=== PATIENT | male | born 1955 | race African-American/Black ===

== ENCOUNTER 2022-09-01 16:52 | Inpatient (IN) | payer MEDICARE ==
[2022-09-01 19:37] VITALS: BMI 23.3
[2022-09-01] MEDS ORDERED: Acetaminophen 325 MG TAB PO PRN (20:01)
[2022-09-01] MEDS ORDERED: Ondansetron ODT 4 MG TAB PO PRN (20:01)
[2022-09-01] MEDS ORDERED: Ondansetron PF 4 MG/2 ML Vial IVP PRN (20:01)
[2022-09-01] MEDS ORDERED: Bisacodyl 5 MG TAB PO PRN (20:01)
[2022-09-01] MEDS ORDERED: Senokot S 8.6-50 MG TAB PO PRN (20:01)
[2022-09-01] MEDS: Atorvastatin Calcium 40 MG TAB PO SCH (21:18)
[2022-09-01] MEDS: Famotidine 20 MG TAB PO SCH (21:18)
[2022-09-01] MEDS ORDERED: hydrALAZINE 20 MG/ML VIAL SLOW IVP PRN (22:19)
[2022-09-02 00:02] LABS: Bacteria/HPF 2+ HPF (None Seen); Bilirubin Negative (Negative); Blood, Urine 1+ (Negative); CAUTI Indications for Culture Dysuria,urgency,freq; Clarity Clear (Clear); Glucose, Urine (Dipstick) Normal (Negative); Ketone, Urine Negative (Negative); Leukocyte 25 Leu/uL (Negative); Nitrite Negative (Negative); Protein, Urine (Dipstick) Negative (Neg-Trace); Specific Gravity, Urine 1.027 (1.002-1.036); Squamous Epithelial 0-3 HPF (0-3); Urobilinogen Normal mg/dL (Less than 2); pH, Urine 6.5 (5.0-9.0)
[2022-09-02 00:06] LABS: Urine Culture Reflex No No
[2022-09-02] MEDS: cefTRIAXone\\ROCEPHIN 1 GM in Sodium Chloride 0.9% 100 ML IVPB SCH (02:54)
[2022-09-02 05:05] LABS: #Eosinphils 0.4 thou/uL (0.0-0.7); #Monocytes 0.4 thou/uL (0.11-0.59); %Basophils 0.7 % (0.0-1.0); %Eosinophils 6.8 % (0.0-10.0); %Lymphocytes 50.9 % (21.0-51.0); %Monocytes 6.8 % (0.0-10.0); %Neutrophils 34.6 % (42.0-75.0); Hemoglobin 13.1 g/dL (14.0-18.0); Mean Corpuscular HGB CONC 31.6 g/dL (32.0-36.0); Mean Corpuscular Hemoglobin 28.7 pg (27.0-31.0); Mean Corpuscular Volume 90.8 fl (78.0-98.0); Mean Platelet Volume 9.3 fL (7.4-10.4); Platelet Count 151 10x3/uL (130-400); RBC Distribution Width 13.6 % (11.5-14.5); Red Blood Cell (RBC) Count 4.56 mill/uL (4.70-6.10); White Blood Cell (WBC) Count 5.9 10x3/uL (4.8-10.8)
[2022-09-02 05:27] LABS: Anion Gap 12 mmol/L (10-20); BUN (Urea Nitrogen) 17 mg/dL (8.4-25.7); Calc. Creatinine Clearance 69 mL/min (70-130); Calcium 9.3 mg/dL (7.8-10.44); Carbon Dioxide 27 mmol/L (23-31); Cardiac Risk 4.2 (Less than 4.5); Chloride 106 mmol/L (98-107); Cholesterol 226 mg/dl (< 200 Desired); Estimated GFR 76; Glucose 92 mg/dL (80-115); HDL Cholesterol 54 mg/dL (>60 Neg Risk); LDL Cholesterol, Calculated 162 mg/dL; Sodium 141 mmol/L (136-145); Triglycerides 49 mg/dL (Less than 150)
[2022-09-02 05:31] LABS: Hemoglobin A1c 5.6 % (4.0-6.0)
[2022-09-02] MEDS: Aspirin 81 mg Enteric Coated Tablet PO SCH (08:19)
[2022-09-02] MEDS: Tamsulosin HCl 0.4 MG CAP PO SCH (08:19)
[2022-09-02] MEDS: Famotidine 20 MG TAB PO SCH ×2 (08:20→21:18)
[2022-09-02] MEDS: Atorvastatin Calcium 40 MG TAB PO SCH (21:18)
[2022-09-03] MEDS: cefTRIAXone\\ROCEPHIN 1 GM in Sodium Chloride 0.9% 100 ML IVPB SCH (02:07)
[2022-09-03] MEDS: Tamsulosin HCl 0.4 MG CAP PO SCH (08:47)
[2022-09-03] MEDS: Aspirin 81 mg Enteric Coated Tablet PO SCH (08:47)
[2022-09-03] MEDS: Famotidine 20 MG TAB PO SCH (08:47)
[2022-09-03] MEDS ORDERED: Lisinopril 10 MG TAB PO SCH (09:00)
[2022-09-03 13:06] VITALS: BP 164/96; TEMP 98.1
== END 2022-09-03 13:47 | disposition home or self-care (01) | DRG 65 ==
LOC: 2SE 16:52 → OBSVTOIN 09-02 14:00
PROVIDERS: ADMIT Family Medicine; ATTEND Internal Medicine
PROC: 4A10X4Z Monitoring of Central Nervous Electrical Activity, External Approach (ICD-10-PCS; principal; 2022-09-02)
PROC: 0T2BX0Z Change Drainage Device in Bladder, External Approach (ICD-10-PCS; 2022-09-02)
DX: I63.9 Cerebral infarction, unspecified (principal); I16.1 Hypertensive emergency; N39.0 Urinary tract infection, site not specified; I16.0 Hypertensive urgency; R32 Unspecified urinary incontinence; R33.9 Retention of urine, unspecified; Z90.49 Acquired absence of other specified parts of digestive tract
CPT/HCPCS: 36415; 70551; 80048; 80061; 81001; 83036; 84443; 85025; 87086; 93306; 95712; 95819; 95957; 96374; G0378; J0696; J3490